=== PATIENT | female | born 1930 | race Caucasian/White ===

== ENCOUNTER → 2018-11-13 | Outpatient (CLI) | payer MEDICARE ==
[~2018-11-13] MED LIST: ALBUTEROL SULF8.5 GM INH; CALCIUM CITRAT1 EA17; CARDIZEM CD360 MG PO; GABAPENTIN100 MG PO; LOSARTAN POTAS100 MG PO; NITROLINGUAL4.9 GM SL; SYMBICORT 16010.2 GM; Z CARDIZEM CD; Z DILTIAZEM; Z.0.ASPIR 8181 MG PO; Z.0.PRAVASTATIN SOD8 PO; Z.2.TRIAMTERENE-HC1 PO; [UNRECOGNIZED DRUG - OTHER]; [UNRECOGNIZED DRUG - OTHER] PO
== END ==
LOC: RAD 13:19
PROVIDERS: ATTEND Family Medicine
DX: R60.0 Localized edema (principal)
CPT/HCPCS: 93970